=== PATIENT | female | born 1975 | race Caucasian/White ===

== ENCOUNTER 2017-07-11 09:07 | Emergency (ER) | payer OTHER ==
[2017-07-11 09:31] VITALS: BP 102/58
--- NOTE | 2017-07-11 10:38 | UC ---
[facility] HPI - HPI Summary HPI Summary: laceration inside of lower lip on left side-happened when child bumped in to her with her head - History of Current Complaint Chief Complaint: UCLaceration Stated Complaint: LIP COMPLAINT Time Seen by Provider: 07/11/17 10:21 Hx Obtained From: Patient Hx Last Menstrual Period: 07/10/17 ?: No Onset/Duration: Sudden Onset Severity: Mild Aggravating Factor(s): Nothing Related History: Swelling - Allergies/Home Medications Allergies/Adverse Reactions: Allergies Allergy/AdvReac Type Severity Reaction Status Date / Time No Known Allergies Allergy Verified 07/11/17 09:26 Home Medications: Home Medications Escitalopram Oxalate [Lexapro 10 mg] 10 mg PO DAILY 07/11/17 [History Confirmed 07/11/17] Ibuprofen TAB* [Advil TAB*] 3 tab PO 07/11/17 [History] PMH/Surg Hx/FS Hx/Imm Hx Previously Healthy: No Psychological History: Depression Other History Of: Negative For: Anticoagulant Therapy - Surgical History Surgical History: Yes Surgery Procedure, Year, and Place: Basal cell carcinoma removed, x2, Breast biopsy 2003 benign, tubes in ears as a child - Family History Known Family History: Positive: None - Social History Occupation: Employed Full-time Lives: With Family Alcohol Use: Occasionally Substance Use Type: None Smoking Status (MU): Never Smoked Tobacco Have You Smoked in the Last Year: No - Immunization History Most Recent Influenza Vaccination: fall 2014 Most Recent Tetanus Shot: 09/12/15 Most Recent Pneumonia Vaccination: never Review of Systems Constitutional: Negative Skin: Negative, Other - small non bleeding laceration inside of lower lip on left side Eyes: Negative ENT: Negative Respiratory: Negative Cardiovascular: Negative Gastrointestinal: Negative Genitourinary: Negative Motor: Negative Neurovascular: Negative Musculoskeletal: Negative Neurological: Negative Psychological: Negative Is Patient Immunocompromised?: No All Other Systems Reviewed And Are Negative: Yes Physical Exam Triage Information Reviewed: Yes Appearance: Well-Appearing, No Pain Distress, Well-Nourished Vital Signs: Initial Vital Signs Temp 98.9 F 07/11/17 09:27 Pulse 63 07/11/17 09:27 Resp 16 07/11/17 09:27 BP 102/58 07/11/17 09:27 Pulse Ox 100 07/11/17 09:27 Vital Signs Reviewed: Yes Eye Exam: Normal Eyes: Positive: Conjunctiva Clear ENT Exam: Normal ENT: Positive: Normal ENT inspection, Hearing grossly normal. Negative: Nasal congestion, Nasal drainage, Trismus, Muffled/hoarse voice Dental Exam: Normal Dental: Positive: Other: - swelling left side of lower lip Neck exam: Normal Neck: Positive: Supple, Nontender Respiratory Exam: Normal Respiratory: Positive: Chest non-tender, No respiratory distress, No accessory muscle use Cardiovascular Exam: Normal Cardiovascular: Positive: Pulses Normal, Brisk Capillary Refill Musculoskeletal Exam: Normal Musculoskeletal: Positive: Strength Intact, ROM Intact Neurological Exam: Normal Neurological: Positive: Alert, Muscle Tone Normal Psychological Exam: Normal Skin Exam: Normal Dental Complaint Course/Dx - Course Course Of Treatment: Ice, Ibuprofen, tylenol, mouth rinse follow with pcp prn - Differential Dx/Diagnosis Differential Diagnosis/Dx: Mandibular Trauma, Odontogenic Pain, Other - lip laceration Provider Diagnoses: small 3 mm laceration wet judy left lower lip Discharge - Discharge Plan Condition: Stable Disposition: HOME Prescriptions: Chlorhexidine MW 0.12% 473ML* [Peridex Mouth Wash 0.12%] 15 ml MT BID #[id number] btl Patient Education Materials: Laceration (ED), Ice Pack Application (ED) Referrals: Spring Levi MD [Primary Care Provider] - If Needed
== END 2017-07-11 10:57 | disposition home or self-care (01) ==
LOC: UCEAST 09:07
DX: S01.511A Laceration without foreign body of lip, initial encounter (principal); W50.0XXA Accidental hit or strike by another person, initial encounter; Y92.9 Unspecified place or not applicable
CPT/HCPCS: 99212; G0463

== ENCOUNTER 2017-10-08 13:56 | Emergency (ER) | payer OTHER ==
[2017-10-08 14:10] VITALS: BP 93/56
--- NOTE | 2017-10-08 15:16 | UC ---
Ear Complaint HPI - HPI Summary HPI Summary: Patient presents with an unremarkable past medical history. She presents with complaints of three week onset runny nose, ear pain and pressure, loose cough. She presents today with the primary complaint of ear pain and pressure, her head fells full. She denies fever, chills, chest pain, abdominal pain, nausea, vomiting, diarrhea, joint pain, or rash. - History of Current Complaint Chief Complaint: UCEar Stated Complaint: EAR PAIN Time Seen by Provider: 10/08/17 15:01 Hx Obtained From: Patient Hx Last Menstrual Period: week ago ?: No Onset/Duration: Lasting Weeks Aggravating Factors: Nothing Alleviating Factors: Nothing Associated Signs/Symptoms: Positive: URI Symptoms - Allergies/Home Medications Allergies/Adverse Reactions: Allergies Allergy/AdvReac Type Severity Reaction Status Date / Time No Known Allergies Allergy Verified 07/11/17 09:26 PMH/Surg Hx/FS Hx/Imm Hx Previously Healthy: Yes Other History Of: Negative For: Anticoagulant Therapy - Surgical History Surgical History: Yes Surgery Procedure, Year, and Place: Basal cell carcinoma removed, x2, Breast biopsy 2004 benign, tubes in ears as a child - Family History Known Family History: Positive: None - Social History Lives: Alone Alcohol Use: Rare Substance Use Type: None Smoking Status (MU): Never Smoked Tobacco Have You Smoked in the Last Year: No - Immunization History Most Recent Influenza Vaccination: fall 2014 Most Recent Tetanus Shot: 09/12/15 Most Recent Pneumonia Vaccination: never Review of Systems Constitutional: Negative Skin: Negative Eyes: Negative ENT: Sore Throat, Ear Ache, Nasal Discharge, Sinus Congestion, Sinus Pain/ Tenderness Respiratory: Cough Cardiovascular: Negative Gastrointestinal: Negative Genitourinary: Negative Motor: Negative Neurovascular: Negative Musculoskeletal: Negative Neurological: Negative Psychological: Negative Is Patient Immunocompromised?: No All Other Systems Reviewed And Are Negative: Yes Physical Exam Triage Information Reviewed: Yes Appearance: Well-Appearing Vital Signs: Initial Vital Signs Temp 98.7 F 10/08/17 14:05 Pulse 62 10/08/17 14:05 Resp 16 10/08/17 14:05 BP 93/56 10/08/17 14:05 Pulse Ox 98 10/08/17 14:05 Vital Signs Reviewed: Yes Eye Exam: Normal ENT Exam: Normal ENT: Positive: Pharynx normal, Nasal congestion, Uvula midline Neck exam: Normal Neck: Positive: 1 Respiratory Exam: Normal Respiratory: Positive: Lungs clear, Normal breath sounds, No respiratory distress, No accessory muscle use Cardiovascular Exam: Normal Abdominal Exam: Normal Musculoskeletal Exam: Normal Neurological Exam: Normal Psychological Exam: Normal Skin Exam: Normal Ear Complaint Course/Dx - Course Course Of Treatment: Patient presents with three week onset viral illness, with reported runny nose, cough, nasal congesion and plugged ears. She states that he main complaint of ear pressure today, she states if feels like her head in under water. Clincally she presents with a nontoxic apperance, with VSS, afebrile. eustachian tube dysfunction causing plugging and pressure. I will RX flonase, and claritin-D, and if her symtpoms to not improve she will follow up with her PCP. - Differential Dx/Diagnosis Differential Diagnosis/HQI/PQRI: Other - Eustachian tube dysfunction Provider Diagnoses: eustachian tube dysfunction Discharge - Discharge Plan Condition: Stable Disposition: HOME Prescriptions: Fluticasone NASAL SPRAY 50MCG* [Flonase NASAL SPRAY 50MCG*] 2 spray BOTH NARES DAILY #1 btl Loratadine & Pseudoephedrine [Claritin-D 12 Hour] 1 tab PO DAILY #14 tab Patient Education Materials: Earache (ED) Referrals: Spring Levi MD [Primary Care Provider] - Additional Instructions: I feel your symptoms are related to Eustachian tube dysfunction and I am going to trail flonase, and claritin-D. if these measure do no improve please follow up with your PCP.
== END 2017-10-08 15:15 | disposition home or self-care (01) ==
LOC: UCEAST 13:56
DX: H69.83 Other specified disorders of Eustachian tube, bilateral (principal); R05 Cough; R09.81 Nasal congestion
CPT/HCPCS: 99212; G0463

== ENCOUNTER 2019-09-18 13:35 | Emergency (ER) | payer OTHER ==
[2019-09-18 14:10] VITALS: BP 92/58
--- NOTE | 2019-09-18 15:23 | UC ---
Throat Pain/Nasal Tanner HPI - HPI Summary HPI Summary: 44-year-old female presents with 7 history of nasal congestion, postnasal drip, sore throat, and occasional productive cough. States cough worse at night when lying down. Feels like symptoms are worsening. Has used fluticasone nasal spray with little relief in symptoms. Denies fever, chills, ear pain, dysphagia, chest pain, or shortness of breath. - History of Current Complaint Chief Complaint: UCGeneralIllness Stated Complaint: SORE THROAT, COUGH Time Seen by Provider: 09/18/19 14:42 Hx Obtained From: Patient Hx Last Menstrual Period: 09/12/19 Pain Intensity: 1 - Allergies/Home Medications Allergies/Adverse Reactions: Allergies Allergy/AdvReac Type Severity Reaction Status Date / Time No Known Allergies Allergy Verified 09/18/19 14:10 Home Medications: Home Medications Dextroamphetamine/Amphetamine [Amphetamine/Dextroampheta 10 mg-] 1 tab PO DAILY 09/18/19 [History Confirmed 09/18/19] PMH/Surg Hx/FS Hx/Imm Hx Previously Healthy: Yes Psychological History: Depression, Other - ADHD Other History Of: Negative For: Anticoagulant Therapy - Surgical History Surgical History: Yes Surgery Procedure, Year, and Place: Basal cell carcinoma removed, x2, Breast biopsy 2003 benign, tubes in ears as a child - Family History Known Family History: Positive: Non-Contributory - Social History Occupation: Employed Full-time Lives: With Family Alcohol Use: Rare Substance Use Type: None Smoking Status (MU): Never Smoked Tobacco Have You Smoked in the Last Year: No - Immunization History Most Recent Influenza Vaccination: fall 2014 Most Recent Tetanus Shot: 09/12/15 Most Recent Pneumonia Vaccination: never Review of Systems All Other Systems Reviewed And Are Negative: Yes Constitutional: Negative: Fever, Chills Eyes: Negative: Drainage, Eye Redness ENT: Positive: Sore Throat, Nasal Discharge, Sinus Congestion, Sinus Pain/ Tenderness. Negative: Ear Ache Respiratory: Positive: Cough. Negative: Shortness Of Breath Cardiovascular: Negative: Palpitations, Chest Pain Gastrointestinal: Negative: Abdominal Pain, Vomiting, Diarrhea, Nausea Genitourinary: Positive: Negative Musculoskeletal: Negative: Myalgia Neurological: Positive: Negative Physical Exam - Summary Physical Exam Summary: GENERAL APPEARANCE: Well developed, well nourished, alert and cooperative, and appears to be in no acute distress. EYES: Conjunctiva clear. No drainage. EARS: External auditory canals and tympanic membranes clear, hearing grossly intact. NOSE: Mild-moderate nasal congestion. No nasal discharge. THROAT: Mild pharyngeal erythema with post-nasal drip. No tonsilar inflammation , swelling, exudate, or lesions. Uvula midline. NECK: Neck supple, non-tender. Mild anterior cervical lymphadenopathy. CARDIAC: Normal S1 and S2. No S3, S4 or murmurs. Rhythm is regular. There is no peripheral edema, cyanosis or pallor. Extremities are warm and well perfused. Capillary refill is less than 2 seconds. Peripheral pulses intact. LUNGS: Clear to auscultation without rales, rhonchi, wheezing or diminished breath sounds. Cough not observed. ABDOMEN: Positive bowel sounds. Soft, nondistended, nontender. No guarding or rebound. No masses or hepatosplenomegally. MUSKULOSKELETAL: ROM intact to all extremities. No joint erythema or tenderness. Normal muscular development. Normal gait. SKIN: Skin normal color, texture and turgor with no lesions or eruptions. Triage Information Reviewed: Yes Vital Signs: Initial Vital Signs Temp 98.9 F 09/18/19 14:07 Pulse 72 09/18/19 14:07 Resp 16 09/18/19 14:07 BP 92/58 09/18/19 14:07 Pulse Ox 100 09/18/19 14:07 Vital Signs Reviewed: Yes Throat Pain/Nasal Course/Dx - Course Course Of Treatment: 44-year-old female presents with 7 history of nasal congestion, postnasal drip, sore throat, and occasional productive cough. States cough worse at night when lying down. Feels like symptoms are worsening. Has used fluticasone nasal spray with little relief in symptoms. Denies fever, chills, ear pain, dysphagia, chest pain, or shortness of breath. Afebrile. Vital signs stable. Patient had mild to minor nasal congestion, mild pharyngeal erythema with postnasal drip, no tonsillar swelling or exudate, mild anterior cervical lymphadenopathy, clear bilateral breath sounds, and otherwise unremarkable exam. Rapid strep test negative. Reviewed results with the patient and discussed that her symptoms likely represent a viral upper respiratory infection although with the duration of her symptoms and reports of worsening of symptoms cannot fully exclude a secondary bacterial infection. I recommended that the patient try symptomatic treatment for another 2-3 days to see if symptoms improve. I will send in a prescription for a course of azithromycin that she can start should her symptoms not improve or continue to worsen. She is to follow-up with her primary care provider in 3-5 days if symptoms are not improving. To anticipatory guidance warning symptoms reviewed are sufficient. Verbalizes understanding and agrees with plan of care. - Differential Dx/Diagnosis Differential Diagnosis/HQI/PQRI: Influenza, Mononucleosis, Peritonsillar Abscess , Pharyngitis, Sinusitis, Tonsillitis, URI Provider Diagnosis: URI with cough and congestion Discharge ED - Sign-Out/Discharge Documenting (check all that apply): Patient Departure All imaging exams completed and their final reports reviewed: No Studies - Discharge Plan Condition: Stable Disposition: HOME Prescriptions: Azithromyxin TREVOR (NF) [Z-Trevor (Zithromax) 250 mg tabs #6] 2 tab PO .TODAY, THEN 1 DAILY #6 tab Patient Education Materials: Upper Respiratory Infection (ED) Referrals: Spring Levi MD [Primary Care Provider] - 3 Days Additional Instructions: Your rapid strep test in the clinic today was negative. Your history and exam are consistent with a viral upper respiratory infection however considering the duration and worsening of your symptoms I cannot fully exclude a secondary bacterial infection. I would recommend treating symptomatically for the next 2-3 days to see if your symptoms improve however I will send in a prescription for an antibiotic to start if they do not improve or continue worsen. Take azithromycin 2 tabs the first day then 1 tab a day for the next 4 days. Drink plenty of fluids to avoid dehydration especially if you are running any fever. Use a saline rinse kit such as Neti Pot or NeilMed at least twice a day to help thin secretions and promote drainage of the sinuses. Continue to use fluticasone (Flonase) nasal spray 2 sprays each nostril once daily. Take over the counter acetaminophen (Tylenol) or ibuprofen (Advil, Motrin) according to directions as needed for pain or fever. Use salt water gargles several times a day if you have a sore throat. You may also use Chloraseptic spray or Cepacol lonzenges according to directions which contain a numbing medication and can provide some temporary relief from your sore throat. Follow up with your primary care provider in 3-5 days if symptoms persist. Seek immediate medical attention in the emergency room if you have fever greater than 100.5 F despite taking acetaminophen or ibuprofen, have chest pain , difficulty breathing, are unable to swallow, or have any worsening of symptoms. - Billing Disposition and Condition Condition: STABLE Disposition: Home
== END 2019-09-18 16:03 | disposition home or self-care (01) ==
LOC: UCEAST 13:35
DX: J06.9 Acute upper respiratory infection, unspecified (principal); R05 Cough; F90.9 Attention-deficit hyperactivity disorder, unspecified type; R09.89 Other specified symptoms and signs involving the circulatory and respiratory systems; Z85.828 Personal history of other malignant neoplasm of skin; Z79.899 Other long term (current) drug therapy
CPT/HCPCS: 87651; 99212; G0463